=== PATIENT | male | born 1990 | race Asian ===

== ENCOUNTER 2016-11-05 02:23 | Emergency (ER) | payer OTHER ==
[~2016-11-05] VITALS: Ht 172 cm; Wt 86.4 kg
[~2016-11-05 02:23] MED LIST: IBU-8800 MG PO; NO HOME MEDICATIONS; NORCO 325 MG-51 TAB PO; ZITHROMAX 250M250 MG PO
[2016-11-05 02:27] VITALS: BP 92/79; PULSE 81; TEMP 98.3
[2016-11-05] MEDS ORDERED: CEPHALEXIN500 M1 PO (04:21)
== END 2016-11-05 04:38 | disposition home or self-care (01) ==
LOC: COL.ER 02:23 → EDBD 02:27 → COL.ER 04:38
DX: S01.511A Laceration without foreign body of lip, initial encounter (principal); S01.411A Laceration without foreign body of right cheek and temporomandibular area, initial encounter; F10.120 Alcohol abuse with intoxication, uncomplicated; Y90.9 Presence of alcohol in blood, level not specified; X58.XXXA Exposure to other specified factors, initial encounter; Y92.414 Local residential or business street as the place of occurrence of the external cause

== ENCOUNTER 2016-11-08 14:42 | Emergency (ER) | payer OTHER ==
[~2016-11-08 14:42] MED LIST changes: +CEPHALEXIN500 M1 PO
[2016-11-08 14:50] VITALS: BP 148/83; PULSE 81; TEMP 97.4
== END 2016-11-08 15:16 | disposition other institution (70) ==
LOC: COL.ER 14:42
DX: Z48.02 Encounter for removal of sutures (principal)